=== PATIENT | male | born 1965 | race African-American/Black ===

== ENCOUNTER 2020-11-18 10:20 | Emergency (ER) | payer BC ==
[~2020-11-18] VITALS: Ht 180.3 cm; Wt 95.0 kg
[~2020-11-18 10:20] MED LIST: CYCL10TA2 PO; NAPR500T8 PO; OXYC1TAB15 PO
[2020-11-18 10:39] LABS: BASO # 0.1 x10^3/uL (0.0-0.2); BASO % 1 % (0-3); EOS # 0.2 x10^3/uL (0.0-0.7); EOS % 3 % (0-3); HEMATOCRIT 42.8 % (39.0-53.0); HEMOGLOBIN 14.3 g/dL (13.0-17.5); LYMPH # 2.1 x10^3/uL (1.0-4.8); LYMPH % 36 % (24-48); MEAN CORPUSCULAR HEMOGLOBIN 28 pg (25-35); MEAN CORPUSCULAR HGB CONC 34 g/dL (31-37); MEAN CORPUSCULAR VOLUME 83 fL (79-100); MONO # 0.6 x10^3/uL (0.0-1.1); MONO % 10 % (0-9); NEUT % 50 % (31-73); PLATELET COUNT 284 x10^3/uL (140-400); RED BLOOD COUNT 5.19 x10^6/uL (4.30-5.70); RED CELL DISTRIBUTION WIDTH 14.2 % (11.5-14.5); WHITE BLOOD COUNT 5.9 x10^3/uL (4.0-11.0)
--- NOTE | 2020-11-18 10:46 | RAD ---
AP chest. HISTORY: Chest pain AP view was taken of the chest. Patient rotated to the right. Comparison is made with an old study fr om October 2016. The aorta is tortuous. There is scoliosis. Heart is normal in size. There are no ac [place] infiltrates. There is no effusion. IMPRESSION: 1. No acute infiltrates. Electronically signed by: Jose Stephen MD (11/18/2020 10:44 AM) [id number]
[2020-11-18 10:51] LABS: CALCIUM 9.8 mg/dL (8.5-10.1); CREATININE 0.8 mg/dL (0.7-1.3); POTASSIUM 4.7 mmol/L (3.5-5.1)
[2020-11-18 10:57] LABS: ALBUMIN/GLOBULIN RATIO 1.3 (1.0-1.7); MAGNESIUM 2.1 mg/dL (1.8-2.4); TOTAL PROTEIN 7.2 g/dL (6.4-8.2)
[2020-11-18 11:25] LABS: PARTIAL THROMBOPLASTIN TIME 33 SEC (24-38); PROTHROMBIN TIME PATIENT 12.3 SEC (11.7-14.0)
[2020-11-18 11:28] LABS: D-DIMER < 0.27 ug/mlFEU (0.00-0.50)
--- NOTE | 2020-11-18 11:41 | ED.ADGEN ---
Past Medical History Past Medical History: High Cholesterol, Hypertension Additional Past Medical Histor: high cholestrol,scoliosis, Past Surgical History: No Surgical History Smoking Status: Current Every Day Smoker Alcohol Use: Occasionally Drug Use: None General Adult EDM: Chief Complaint: CHEST PAIN HPI: HPI: Patient is a 55 year old AA male, accompanied by significant other, who presents emergency department with complaints of pain in the left side of his chest with a deep breath began at 9:00 this morning. Patient denies any nausea, vomiting, diaphoresis, shortness of breath, wheezing, cough, syncope, numbness, tingling, or weakness. He denies any headache, fever, body aches, or abdominal pain. Patient reports that he feels anxious at this time he is scheduled to have a crown done at his dentist later this afternoon. He currently denies any chest pain unless he takes a deep breath. Patient reports that his chest is nontender, he denies any recent injury or heavy lifting. Review of Systems: Review of Systems: Complete ROS is negative unless otherwise noted in HPI. Current Medications: Current Medications Medications (Trade) Dose Ordered Sig/Fernie Start Time Stop Time Status Last Admin Dose Admin Lorazepam (Ativan) 1 mg 1X ONCE 11/18/20 11:45 11/18/20 11:46 DC 11/18/20 11:43 1 MG Allergies: Allergies: Allergies Coded Allergies Type Severity Reaction Last Updated Verified No Known Drug Allergies 11/05/16 No Physical Exam: PE: See Above Constitutional: Well developed, well nourished, no acute distress, non-toxic appearance. [] HENT: Normocephalic, atraumatic, bilateral external ears normal, nose normal. [] Eyes: PERRLA, EOMI, conjunctiva normal, no discharge. [] Neck: Normal range of motion, no stridor. [] Cardiovascular:Heart rate regular rhythm Lungs & Thorax: Respirations even and unlabored, no retractions, no respiratory distress, nontender to palpation Abdomen: soft, no tenderness Skin: Warm, dry, no erythema, no rash. [] Extremities: No cyanosis, ROM intact, no edema. [] Neurologic: Alert and oriented X 3, no focal deficits noted. [] Psychologic: Affect normal, judgement normal, mood normal. [] Current Patient Data: Labs: Laboratory Tests Test 11/18/20 10:30 11/18/20 12:20 11/18/20 12:45 White Blood Count 5.9 x10^3/uL (4.0-11.0) Red Blood Count 5.19 x10^6/uL (4.30-5.70) Hemoglobin 14.3 g/dL (13.0-17.5) Hematocrit 42.8 % (39.0-53.0) Mean Corpuscular Volume 83 fL (79-100) Mean Corpuscular Hemoglobin 28 pg (25-35) Mean Corpuscular Hemoglobin Concent 34 g/dL (31-37) Red Cell Distribution Width 14.2 % (11.5-14.5) Platelet Count 284 x10^3/uL (140-400) Neutrophils (%) (Auto) 50 % (31-73) Lymphocytes (%) (Auto) 36 % (24-48) Monocytes (%) (Auto) 10 % (0-9) H Eosinophils (%) (Auto) 3 % (0-3) Basophils (%) (Auto) 1 % (0-3) Neutrophils # (Auto) 3.0 x10^3/uL (1.8-7.7) Lymphocytes # (Auto) 2.1 x10^3/uL (1.0-4.8) Monocytes # (Auto) 0.6 x10^3/uL (0.0-1.1) Eosinophils # (Auto) 0.2 x10^3/uL (0.0-0.7) Basophils # (Auto) 0.1 x10^3/uL (0.0-0.2) Prothrombin Time 12.3 SEC (11.7-14.0) Prothrombin Time INR 1.0 (0.8-1.1) Activated Partial Thromboplast Time 33 SEC (24-38) D-Dimer (Jessica) < 0.27 ug/mlFEU Sodium Level 140 mmol/L (136-145) Potassium Level 4.7 mmol/L (3.5-5.1) Chloride Level 105 mmol/L (98-107) Carbon Dioxide Level 29 mmol/L (21-32) Anion Gap 6 (6-14) Blood Urea Nitrogen 11 mg/dL (8-26) Creatinine 0.8 mg/dL (0.7-1.3) Estimated GFR (Cockcroft-Gault) 121.0 BUN/Creatinine Ratio 14 (6-20) Glucose Level 106 mg/dL (70-99) H Calcium Level 9.8 mg/dL (8.5-10.1) Magnesium Level 2.1 mg/dL (1.8-2.4) Total Bilirubin 1.0 mg/dL (0.2-1.0) Aspartate Amino Transferase (AST) 18 U/L (15-37) Alanine Aminotransferase (ALT) 44 U/L (16-63) Alkaline Phosphatase 79 U/L (46-116) Creatine Kinase 210 U/L (39-308) Creatine Kinase MB (Mass) 1.3 ng/mL (0.0-3.6) Creatine Kinase MB Relative Index 0.6 % (0-4) Troponin I Quantitative < 0.017 ng/mL (0.000-0.055) < 0.017 ng/mL (0.000-0.055) IG-Hbj-L-Type Natriuretic Peptide 22 pg/mL (0-124) Total Protein 7.2 g/dL (6.4-8.2) Albumin 4.0 g/dL (3.4-5.0) Albumin/Globulin Ratio 1.3 (1.0-1.7) Lipase 156 U/L (73-393) Urine Collection Type Unknown Urine Color Yellow Urine Clarity Clear Urine pH 8.0 (<5.0-8.0) Urine Specific [place] 1.015 (1.000-1.030) Urine Protein Negative mg/dL (NEG-TRACE) Urine Glucose (UA) Negative mg/dL (NEG) Urine Ketones (Stick) Negative mg/dL (NEG) Urine Blood Negative (NEG) Urine Nitrite Negative (NEG) Urine Bilirubin Negative (NEG) Urine Urobilinogen Dipstick 1.0 mg/dL (0.2 mg/dL) Urine Leukocyte Esterase Negative (NEG) Urine RBC Occ /HPF (0-2) Urine WBC 0 /HPF (0-4) Urine Bacteria 0 /HPF (0-FEW) Urine Mucus Slight /LPF Laboratory Tests 11/18/20 10:30 Laboratory Tests 11/18/20 10:30 Vital Signs: Vital Signs Date Time Temp Pulse Resp B/P (MAP) Pulse Ox O2 Delivery O2 Flow Rate FiO2 11/18/20 13:30 76 173/92 (119) 98 Room Air 11/18/20 10:25 98.0 22 98.0 EKG: EK-sinus rhythm with a rate of 78, T wave abnormality in the anterolateral leads, no STEMI, read by Dr. Stahl [] Heart Score: HEART Score for Chest Pain: HEART Score for Chest Pain Response (Comments) Value History Slighlty/Non-Suspicious 0 ECG Nonspecific Repolarizatio 1 Age >45 - < 65 1 Risk Factors >3 Risk Factors or Hx CAD 2 Troponin < Normal Limit 0 Total 4 Risk Factors: Risk Factors: DM, Current or recent (<one month) smoker, HTN, HLP, family hist ory of CAD, obesity. Risk Scores: Score 0 - 3: 2.5% MACE over next 6 weeks - Discharge Home Score 4 - 6: 20.3% MACE over next 6 weeks - Admit for Clinical Observation Score 7 - 10: 72.7% MACE over next 6 weeks - Early Invasive Strategies Radiology/Procedures: Radiology/Procedures: PROCEDURE: CHEST AP ONLY AP chest. HISTORY: Chest pain AP view was taken of the chest. Patient rotated to the right. Comparison is made with an old study from October 2016. The aorta is tortuous. There is scoliosis. Heart is normal in size. There are no acute infiltrates. There is no effusion. IMPRESSION: 1. No acute infiltrates. [] Course & Med Decision Making: Course & Med Decision Making Pertinent Labs and Imaging studies reviewed. (See chart for details) 55-year-old male presented to the emergency room with complaints of sudden onset left-sided chest pain pain with inspiration since 9:00 this morning. Patient states he is anxious about a crown that he is supposed to have done this afternoon. EKG revealed no acute findings. Work-up included labs. The patient was pain- free while in the emergency room. CBC and CMP were unremarkable. PT/INR and D-dimer were within normal limits; UA was also unremarkable. Patient's first troponin was less than 0.17, repeat troponin II hours after the first 1 was also less than 0.17. Patient was given 1 mg of Ativan in the emergency department he reported feeling better after taking the Ativan. I encouraged patient to follow-up with his primary care doctor next 1 to 2 days, and his heart score was a 4 however there is low suspicion for this to of cardiopulmonary origin. Patient verbalized an understanding of home care, medications, follow-up, and return to ED instructions and was in agreement with the plan of care. [] Dragon Disclaimer: Dragon Disclaimer: This electronic medical record was generated, in whole or in part, using a voice recognition dictation system. Departure Departure Impression: Primary Impression: Anxiety Additional Impression: Atypical chest pain Disposition: 01 DC HOME SELF CARE/HOMELESS Condition: STABLE Referrals: ALAN WONG (PCP) Patient Instructions: Anxiety and Panic Attacks, [id number], Chest Pain (Nonspecific), [id number] Additional Instructions: Follow-up with your primary care doctor in the next 1 to 2 days. Return to the ER if your chest pain returns. Develop worsening symptoms including shortness of breath or fever. Thank you for choosing [facility] today have a happy new year. Problem Qualifiers LARA RIZO APRN Nov 18, 2020 11:41
[2020-11-18] MEDS: LORazepam 0.5 MG TABLET PO ONE (11:43)
[2020-11-18 12:33] LABS: BILIRUBIN,URINE NEGATIVE (NEG); CLARITY,URINE CLEAR; COLOR,URINE YELLOW; NITRITE,URINE NEGATIVE (NEG); PROTEIN,URINE NEGATIVE (NEG-TRACE)
[2020-11-18 12:46] LABS: BACTERIA,URINE 0 /HPF (0-FEW); RBC,URINE OCC /HPF (0-2); WBC,URINE 0 /HPF (0-4)
[2020-11-18 13:30] VITALS: BP 173/92
== END 2020-11-18 13:48 | disposition home or self-care (01) ==
LOC: ER 10:20
DX: F41.9 Anxiety disorder, unspecified (principal); R07.89 Other chest pain; E78.00 Pure hypercholesterolemia, unspecified; I10 Essential (primary) hypertension; F17.200 Nicotine dependence, unspecified, uncomplicated
CPT/HCPCS: 36415; 71045; 80053; 81001; 82553; 83690; 83735; 83880; 84484; 85025; 85379; 85610; 85730; 93005; 99285-25